=== PATIENT | male | born 1985 ===

== ENCOUNTER 2016-11-13 12:46 | Emergency (ER) | payer MEDICAID, OTHER ==
[2016-11-13 12:46] VITALS: BMI 24.9
[2016-11-13] MEDS ORDERED: Sodium Chloride 0.9% 1,000 ML IV ONE (13:29)
[2016-11-13] MEDS ORDERED: Sodium Chloride 0.9% 1,000 ML ONE (13:39)
[2016-11-13 13:54] LABS: BASO # 0.1 K/uL (0.0-0.2); BASO % 0.8 % (0.0-2.0); EOS % 0.4 % (0.0-4.0); HEMATOCRIT 35.4 % (35.0-51.0); LYMPH # 1.6 K/uL (1.0-4.3); LYMPH % 21.9 % (20.0-40.0); MEAN CELL VOLUME 84.9 fL (80.0-94.0); MEAN CORPUSCULAR HEMOGLOBIN 27.9 pg (27.0-31.0); MEAN CORPUSCULAR HGB CONC 32.8 g/dL (33.0-37.0); MEAN PLATELET VOLUME 8.8 fL (7.2-11.7); MONO # 0.9 K/uL (0.0-0.8); MONO % 12.2 % (0.0-10.0); RED CELL DISTRIBUTION WIDTH 12.9 % (11.5-14.5); WHITE BLOOD COUNT 7.1 K/uL (4.8-10.8)
[2016-11-13 14:00] LABS: CHLORIDE 100 mmol/L (98-107)
[2016-11-13 14:01] LABS: POTASSIUM 3.4 mmol/L (3.6-5.2); SODIUM 136 mmol/L (132-148)
[2016-11-13 14:03] LABS: ALB/GLOB RATIO 1.1 (1.0-2.1); ALKALINE PHOSPHATASE 71 U/L (38-126); AST/SGOT 27 U/L (17-59); BILIRUBIN,TOTAL 0.5 mg/dL (0.2-1.3); CARBON DIOXIDE 25 mmol/L (22-30); GFR AFRICAN-AMERICAN > 60; TOTAL PROTEIN 7.4 g/dL (6.3-8.3)
[2016-11-13 14:04] LABS: ALT/SGPT 26 U/L (21-72); BLOOD UREA NITROGEN 8 mg/dL (9-20); CALCIUM 8.4 mg/dl (8.6-10.4); GLUCOSE,RANDOM 86 mg/dL (75-110)
--- NOTE | 2016-11-13 14:35 | C.PDOC ---
Time Seen by Provider: 11/13/16 13:17 Chief Complaint (Nursing): Cough, Cold, Congestion History Per: Patient Onset/Duration Of Symptoms: Days (1) Current Symptoms Are (Timing): Still Present Associated Symptoms: Cough, Sputum, Nasal Congestion, Vomiting, Diarrhea Severity: Moderate Recent travel outside of the [place]: No Additional History Per: Prior Records Past Medical History Reviewed: Historical Data, Nursing Documentation, Vital Signs Vital Signs: Last Vital Signs Temp 98.5 F 11/13/16 13:01 Pulse 108 H 11/13/16 13:01 Resp 18 11/13/16 13:01 BP 101/66 11/13/16 13:01 Pulse Ox 99 11/13/16 13:01 - Medical History PMH: Bipolar Disorder, Depression, Diabetes, Gastritis Surgical History: No Surg Hx Family History: States: Unknown Family Hx - Social History Hx Tobacco Use: Yes Hx Alcohol Use: No Hx Substance Use: No - Immunization History Hx Tetanus Toxoid Vaccination: No Hx Influenza Vaccination: No Hx Pneumococcal Vaccination: No Review Of Systems Except As Marked, All Systems Reviewed And Found Negative. Constitutional: Negative for: Fever, Weakness ENT: Positive for: Nose Congestion. Negative for: Throat Pain Cardiovascular: Negative for: Chest Pain Respiratory: Positive for: Cough. Negative for: Shortness of Breath, Hemoptysis Gastrointestinal: Positive for: Nausea, Vomiting, Abdominal Pain, Diarrhea Genitourinary: Negative for: Dysuria Musculoskeletal: Negative for: Neck Pain, Back Pain Skin: Negative for: Rash Neurological: Negative for: Weakness, Numbness, Seizures, Altered Mental Status Physical Exam - Physical Exam Appears: Non-toxic, No Acute Distress Skin: Normal Color, Warm, Dry, No Rash Head: Atraumatic, Normacephalic Eye(s): bilateral: PERRL, EOMI Neck: Normal ROM, Supple Cardiovascular: Rhythm Regular Respiratory: Normal Breath Sounds, No Accessory Muscle Use Gastrointestinal/Abdominal: Soft, No Distention Back: No CVA Tenderness Extremity: Normal ROM Neurological/Psych: Oriented x3, Normal Motor, Normal Sensation ED Course And Treatment - Laboratory Results Result Diagrams: 11/13/16 13:49 11/13/16 13:49 Lab Interpretation: No Acute Changes O2 Sat by Pulse Oximetry: 99 Pulse Ox Interpretation: Normal - Radiology CXR: Interpreted by Me, Viewed By Me CXR Interpretation: Yes: No Acute Disease, Heart Size (wnl) Progress Note: Tolerating PO in the ED. Reassessment Condition: Improved Progress - Interventions Interventions:: Observation, Intravenous fluid - Medications Administered Intravenous: Antiemetic, H-2 cecilio - Data Reviewed Data Reviewed: Lab, Diagnostic imaging, Old records - Patient Status Patient status: Mostly improved - Continuity of Care Discussed patient case with:: Patient, ED Nurse - Patient Plan Patient Plan: Discharge, F/U with PCP Disposition Counseled Patient/Family Regarding: Studies Performed, Diagnosis, Need For Followup, Smoking Cessation - Disposition Referrals: [facility] [Outside] Disposition: HOME/ ROUTINE Disposition Time: 14:36 Condition: IMPROVED Additional Instructions: Stop smoking. Drink plenty of fluids. Follow up in the clinic for further evaluation and treatment. Return to the ER if you develop fever, shortness of breath, not tolerating fluids, worsening of symptoms or if you have any other concerns. Instructions: Cold Symptoms (ED) Print Language: BOLIVIAN - Clinical Impression Clinical Impression: Influenza-like illness
[2016-11-13 14:45] VITALS: BP 128/90; PULSE 98; RESP 16; TEMP 98.8; O2SAT 100
--- NOTE | 2016-11-13 14:59 | RAD ---
HISTORY: Cough COMPARISON: 06/11/2012. TECHNIQUE: Chest PA and lateral FINDINGS: LUNGS: No active pulmonary disease. PLEURA: No significant pleural effusion identified. No pneumothorax apparent. CARDIOVASCULAR: Normal. OSSEOUS STRUCTURES: No significant abnormalities. VISUALIZED UPPER ABDOMEN: Normal. OTHER FINDINGS: None. IMPRESSION: No active disease. No significant interval change compared to the prior examination(s).
== END 2016-11-13 14:44 | disposition home or self-care (01) ==
LOC: C.ER 12:46
DX: J11.1 Influenza due to unidentified influenza virus with other respiratory manifestations (principal)
CPT/HCPCS: 71020; 80053; 83690; 85025; 87804; 96361; 96374; 96375; 99285; J2765; J7040

== ENCOUNTER 2016-11-15 22:05 | Emergency (ER) | payer MEDICAID, OTHER ==
[2016-11-15 22:06] VITALS: BMI 24.9
[2016-11-15 22:38] VITALS: BP 100/63; PULSE 126; RESP 20; TEMP 98.1; O2SAT 98
--- NOTE | 2016-11-16 01:21 | C.PDOC ---
History Of Present Illness A 31 y/o male who was seen here 2 days ago for flu like symptoms presents today continuing to feel nausea and aching body pain, that is worse in the knee and legs. Patient was not given any prescriptions to go home with during his last visit. Patient denies fever, chills, abdominal pain, trauma, or any other complaints. Time Seen by Provider: 11/15/16 22:52 Chief Complaint (Nursing): Medical Clearance History Per: Patient History/Exam Limitations: no limitations Onset/Duration Of Symptoms: Days Current Symptoms Are (Timing): Still Present Severity: Mild Reports Recently: Seen In ED Recent travel outside of the [place]: No Additional History Per: Patient Past Medical History Reviewed: Historical Data, Nursing Documentation, Vital Signs Vital Signs: Last Vital Signs Temp 98.1 F 11/15/16 22:35 Pulse 126 H 11/15/16 22:35 Resp 20 11/15/16 22:35 BP 100/63 11/15/16 22:35 Pulse Ox 98 11/16/16 01:28 - Medical History PMH: Bipolar Disorder, Depression, Diabetes, Gastritis Surgical History: No Surg Hx Family History: States: Unknown Family Hx - Social History Hx Tobacco Use: Yes Hx Alcohol Use: No Hx Substance Use: No - Immunization History Hx Tetanus Toxoid Vaccination: No Hx Influenza Vaccination: No Hx Pneumococcal Vaccination: No Review Of Systems Except As Marked, All Systems Reviewed And Found Negative. Constitutional: Negative for: Fever, Chills ENT: Positive for: Nose Congestion Cardiovascular: Negative for: Chest Pain Respiratory: Positive for: Cough, Sputum Gastrointestinal: Positive for: Nausea, Vomiting. Negative for: Abdominal Pain Musculoskeletal: Positive for: Leg Pain (Knee and leg pain) Neurological: Negative for: Headache, Dizziness Physical Exam - Physical Exam Appears: Non-toxic, No Acute Distress Skin: Warm, Dry, No Rash Head: Atraumatic, Normacephalic Eye(s): bilateral: Normal Inspection, EOMI Nose: Normal Oral Mucosa: Moist Neck: Normal ROM, Supple Chest: Symmetrical Cardiovascular: Rhythm Regular Respiratory: Normal Breath Sounds, No Rales, No Rhonchi, No Wheezing Gastrointestinal/Abdominal: Soft, No Tenderness, No Distention, No Guarding Extremity: Bilateral: Atraumatic, No Pedal Edema, Normal Color And Temperature, Normal ROM, Other (no calf tenderness) Pulses: Left Dorsalis Pedis: Normal, Right Dorsalis Pedis: Normal Neurological/Psych: Oriented x3, Normal Speech, Other (No focal deficit) Gait: Steady ED Course And Treatment O2 Sat by Pulse Oximetry: 98 (RA) Pulse Ox Interpretation: Normal Medical Decision Making Medical Decision Making: Impression: 31 y/o c/o flu like sx and leg pain Plans: -Motrin -Zofran Progress: Prior record reviewed, patient had negative flu test and labs unremarkable. Upon reevaluation, patient is resting comfortably and is in no acute distress. He remained afebrile and was able to tolerate PO. He is ambulatory without signs of discomfort. Rx was given. Patient was instructed to follow up with PMD within 1-2 days if symptoms persist. Disposition Counseled Patient/Family Regarding: Diagnosis, Need For Followup, Rx Given - Disposition Disposition: HOME/ ROUTINE Disposition Time: 23:40 Condition: GOOD Additional Instructions: Follow up with the clinic in 2-5 days for further evaluation. Take medications as prescribed. Return to the emergency department at any time if symptoms persist or worsen. You may call [facility] for any assistance . Prescriptions: Ibuprofen [Motrin] 600 mg PO Q8 #30 tab Ondansetron ODT [Zofran ODT] 1 odt PO BID PRN #6 odt PRN Reason: Nausea/Vomiting Instructions: Viral Syndrome (ED) - POA Present On Arrival: None - Clinical Impression Clinical Impression: Viral syndrome, Myalgia - Scribe Statement The provider has reviewed the documentation as recorded by the Emy mcguire All medical record entries made by the Emy were at my direction and personally dictated by me. I have reviewed the chart and agree that the record accurately reflects my personal performance of the history, physical exam, medical decision making, and the department course for this patient. I have also personally directed, reviewed, and agree with the discharge instructions and disposition.
== END 2016-11-15 23:40 | disposition home or self-care (01) ==
LOC: C.ER 22:05
DX: B34.9 Viral infection, unspecified (principal); M79.1 Myalgia

== ENCOUNTER 2016-11-17 06:43 | Emergency (ER) | payer OTHER ==
[2016-11-17 06:43] VITALS: BMI 24.9
[2016-11-17] MEDS ORDERED: Sodium Chloride 0.9% 1,000 ML IV ONE (07:11)
--- NOTE | 2016-11-17 07:16 | C.PDOC ---
History Of Present Illness 31 y/o male with hx depression., schizophrenia and iddm, though hasn't taken insulin in 3 days because he ran out, c/o pleuritic chest pain with cough , green sputum, subjective fever, rhinorrhea. pt sts he vomited yesterday and c/o 3 days of ruq abdominal pain. pt requesting food now in ER. pt reports he was seen at another ED and was 'given a pill' for unknown reason; pt lost discharge papers. Time Seen by Provider: 11/17/16 06:56 Chief Complaint (Nursing): Cough, Cold, Congestion History Per: Patient History/Exam Limitations: no limitations Onset/Duration Of Symptoms: Days (3) Current Symptoms Are (Timing): Still Present Reports Recently: Seen In ED Recent travel outside of the [place]: No Past Medical History Reviewed: Historical Data, Nursing Documentation, Vital Signs Vital Signs: Last Vital Signs Temp 98.1 F 11/17/16 08:58 Pulse 108 H 11/17/16 08:58 Resp 18 11/17/16 08:58 BP 100/73 11/17/16 08:58 Pulse Ox 100 11/17/16 08:58 - Medical History PMH: Bipolar Disorder, Depression, Diabetes, Gastritis Surgical History: No Surg Hx Family History: States: Unknown Family Hx - Social History Hx Tobacco Use: Yes Hx Alcohol Use: No Hx Substance Use: No - Immunization History Hx Tetanus Toxoid Vaccination: No Hx Influenza Vaccination: No Hx Pneumococcal Vaccination: No Review Of Systems Constitutional: Positive for: Fever, Chills ENT: Positive for: Nose Discharge. Negative for: Nose Pain, Throat Pain Cardiovascular: Negative for: Chest Pain Respiratory: Positive for: Cough, Shortness of Breath, Pleuritic Pain, Sputum ( green) Gastrointestinal: Positive for: Vomiting, Abdominal Pain Genitourinary: Negative for: Dysuria, Frequency Neurological: Negative for: Weakness, Numbness Physical Exam - Physical Exam Appears: Non-toxic, No Acute Distress Skin: Warm, Dry Head: Atraumatic, Normacephalic Eye(s): bilateral: Normal Inspection Ear(s): Bilateral: TM Obscured By Wax Nose: Discharge Oral Mucosa: Dry Throat: Normal Neck: Normal ROM Chest: Symmetrical, No Deformity, No Tenderness Cardiovascular: Rhythm Regular (tachycardic 120), No Murmur Respiratory: Decreased Breath Sounds (at bases), No Rales, No Rhonchi, No Wheezing Gastrointestinal/Abdominal: Bowel Sounds, Soft, Tenderness (mild ruq tenderness , neg [place] sign) Back: Normal Inspection Extremity: No Tenderness, No Pedal Edema Neurological/Psych: Oriented x3, Normal Speech, Normal Cognition ED Course And Treatment - Laboratory Results Result Diagrams: 11/17/16 07:34 11/17/16 07:34 O2 Sat by Pulse Oximetry: 97 Pulse Ox Interpretation: Normal - Radiology CXR: Read By Radiologist CXR Interpretation: Yes: No Acute Disease. No: Infiltrates Medical Decision Making Medical Decision Making: pt tachycardic and hyppotensve, appears non-toxic, sepsis screening labs, cxr, vgb and ivf ordered. 947 am pt appears well, walking around in ED in no distress, feeling better. pt treated with ivf and postassium, and ate something in ed. no vomiting, no abdominal hercules on re-exam, will d/c home. Disposition Counseled Patient/Family Regarding: Studies Performed, Diagnosis, Need For Followup - Disposition Referrals: [facility] [Outside] [facility] [Outside] Disposition: HOME/ ROUTINE Disposition Time: 09:49 Condition: IMPROVED Additional Instructions: Follow up in medical clinic in a few days. Stop smoking. Eat food with potassium- banana, oranges. Return to ER for any worsening symptoms. Instructions: Upper Respiratory Infection (ED) Forms: General Discharge Instructions - Clinical Impression Clinical Impression: Upper respiratory infection
[2016-11-17 07:37] LABS: BASO % 0.3 % (0.0-2.0); EOS # 0.2 K/uL (0.0-0.7); EOS % 1.5 % (0.0-4.0); HEMATOCRIT 32.4 % (35.0-51.0); LYMPH # 1.4 K/uL (1.0-4.3); LYMPH % 13.7 % (20.0-40.0); MEAN CORPUSCULAR HEMOGLOBIN 27.9 pg (27.0-31.0); MEAN CORPUSCULAR HGB CONC 32.9 g/dL (33.0-37.0); MEAN PLATELET VOLUME 8.8 fL (7.2-11.7); MONO # 1.1 K/uL (0.0-0.8); MONO % 10.8 % (0.0-10.0); RED CELL DISTRIBUTION WIDTH 12.9 % (11.5-14.5); WHITE BLOOD COUNT 10.1 K/uL (4.8-10.8)
[2016-11-17 07:43] LABS: VENOUS BLOOD GAS BASE EXCESS 1.5 mmol/L (0.0-2.0); VENOUS BLOOD GAS PCO2 49 mmHg (40-60); VENOUS BLOOD PH 7.36 (7.32-7.43)
[2016-11-17] MEDS ORDERED: Potassium Chloride 20 mEq ER Tab PO STA (07:48)
[2016-11-17 07:51] LABS: CHLORIDE 102 mmol/L (98-107); POTASSIUM 3.4 mmol/L (3.6-5.2); SODIUM 138 mmol/L (132-148)
[2016-11-17 07:53] LABS: ALB/GLOB RATIO 1.1 (1.0-2.1); ALKALINE PHOSPHATASE 59 U/L (38-126); AST/SGOT 43 U/L (17-59); BILIRUBIN,TOTAL 0.4 mg/dL (0.2-1.3); BLOOD UREA NITROGEN 4 mg/dL (9-20); CARBON DIOXIDE 26 mmol/L (22-30); GFR AFRICAN-AMERICAN > 60; TOTAL PROTEIN 6.6 g/dL (6.3-8.3)
[2016-11-17 07:54] LABS: ALT/SGPT 25 U/L (21-72); CALCIUM 7.5 mg/dl (8.6-10.4); GLUCOSE,RANDOM 75 mg/dL (75-110)
[2016-11-17] MEDS ORDERED: Potassium Chloride 20 mEq ER Tab PO ONE (07:56)
--- NOTE | 2016-11-17 08:14 | RAD ---
HISTORY: cough green sputum COMPARISON: 11/13/2016 TECHNIQUE: Chest PA and lateral FINDINGS: LUNGS: No active pulmonary disease. PLEURA: No significant pleural effusion identified. No pneumothorax apparent. CARDIOVASCULAR: Normal. OSSEOUS STRUCTURES: No significant abnormalities. VISUALIZED UPPER ABDOMEN: Normal. OTHER FINDINGS: None. IMPRESSION: No active disease.
[2016-11-17 08:19] LABS: URINE BILIRUBIN NEGATIVE (NEGATIVE); URINE BLOOD 2+ (NEGATIVE); URINE COLOR Yellow (YELLOW); URINE GLUCOSE (UA) NORMAL (Normal); URINE KETONE NEGATIVE (NEGATIVE); URINE LEUKOCYTE ESTERASE NEG Leu/uL (Negative); URINE PROTEIN NEGATIVE (NEGATIVE); URINE UROBILINOGEN NORMAL mg/dL (0.2-1.0); WBC URINE 2 /hpf (0-5)
[2016-11-17 08:26] LABS: RBC URINE 6 /hpf (0-3)
[2016-11-17 08:59] VITALS: PULSE 108; RESP 18
[2016-11-17 10:23] VITALS: BP 96/76; TEMP 98.2
[2016-11-18 10:57] VITALS: O2SAT 97
== END 2016-11-17 10:52 | disposition home or self-care (01) ==
LOC: C.ER 06:43
DX: J06.9 Acute upper respiratory infection, unspecified (principal)
CPT/HCPCS: 71020; 80053; 81001; 82803; 85025; 87040; 87086; 96360; 99285; J7040

== ENCOUNTER 2016-11-18 22:45 | Emergency (ER) | payer OTHER ==
[2016-11-18 22:45] VITALS: BMI 24.9
[2016-11-18 23:21] VITALS: BP 106/69; PULSE 98; RESP 16; TEMP 98.4; O2SAT 98
--- NOTE | 2016-11-18 23:43 | C.PDOC ---
History Of Present Illness Patient is a 31 year old male who presents to the ER with a complaint of a painful blister on his left heel. [place] [facility] [place] and [place] tylen[place]. Denies any other physical complaints. Time Seen by Provider: 11/18/16 23:32 Chief Complaint (Nursing): Abnormal Skin Integrity History Per: Patient History/Exam Limitations: no limitations Onset/Duration Of Symptoms: Hrs Current Symptoms Are (Timing): Still Present Location Of Injury: Left: Foot (Heel) Quality Of Symptoms: Painful Recent travel outside of the [place]: No Past Medical History Reviewed: Historical Data, Nursing Documentation, Vital Signs Vital Signs: Last Vital Signs Temp 98.4 F 11/18/16 23:15 Pulse 98 H 11/18/16 23:15 Resp 16 11/18/16 23:15 BP 106/69 11/18/16 23:15 Pulse Ox 98 11/19/16 02:24 - Medical History PMH: Bipolar Disorder, Depression, Diabetes, Gastritis Surgical History: No Surg Hx Family History: States: Unknown Family Hx - Social History Hx Tobacco Use: Yes Hx Alcohol Use: No Hx Substance Use: No - Immunization History Hx Tetanus Toxoid Vaccination: No Hx Influenza Vaccination: No Hx Pneumococcal Vaccination: No Review Of Systems Musculoskeletal: Positive for: Foot Pain (Left heel) Physical Exam - Physical Exam Appears: Well, Non-toxic Skin: Normal Color, Warm, Dry Head: Atraumatic, Normacephalic Oral Mucosa: Moist Extremity: No Swelling, Other (Open blister to left heel, no signs of infection) Neurological/Psych: Oriented x3, Normal Speech, Normal Cognition ED Course And Treatment O2 Sat by Pulse Oximetry: 98 (Room air) Pulse Ox Interpretation: Normal Progress Note: Patient advised to continue using tylen[place] [facility] [place] and to wear flip flops so blister can heal. Disposition - Disposition Referrals: [facility] [Outside] Disposition: HOME/ ROUTINE Disposition Time: 23:42 Condition: STABLE Additional Instructions: Follow up in Clinic within 1-2 days. Return to Ed if feel worse. Prescriptions: Acetaminophen [Tylenol 325mg tab] 2 tab PO Q6 #50 tab Instructions: Blister (ED) - Clinical Impression Clinical Impression: Heel blister - Scribe Statement The provider has reviewed the documentation as recorded by the Scribe Clinton Horton All medical record entries made by the Scribe were at my direction and personally dictated by me. I have reviewed the chart and agree that the record accurately reflects my personal performance of the history, physical exam, medical decision making, and the department course for this patient. I have also personally directed, reviewed, and agree with the discharge instructions and disposition.
== END 2016-11-18 23:51 | disposition home or self-care (01) ==
LOC: C.ER 22:45
DX: S90.822A Blister (nonthermal), left foot, initial encounter (principal); X58.XXXA Exposure to other specified factors, initial encounter

== ENCOUNTER 2016-11-21 03:36 | Emergency (ER) | payer SELFPAY ==
[2016-11-21 03:36] VITALS: BMI 24.9
[2016-11-21 03:56] VITALS: RESP 16
--- NOTE | 2016-11-21 04:52 | C.PDOC ---
History Of Present Illness Pt presents to ER with c/o of wound to left heel with pain which started "from walking too much". Pt was seen 2 days ago here in ED for same. Denies trauma, numbness Time Seen by Provider: 11/21/16 03:52 Chief Complaint (Nursing): Lower Extremity Problem/Injury History Per: Patient History/Exam Limitations: no limitations Current Symptoms Are (Timing): Still Present Past Medical History Vital Signs: Last Vital Signs Temp 98.6 F 11/21/16 03:53 Pulse 120 H 11/21/16 03:53 Resp 16 11/21/16 03:53 BP 100/70 11/21/16 03:53 Pulse Ox 98 11/21/16 05:17 - Medical History PMH: Bipolar Disorder, Depression, Diabetes, Gastritis Family History: States: Unknown Family Hx - Social History Hx Tobacco Use: Yes Hx Alcohol Use: No Hx Substance Use: No - Immunization History Hx Tetanus Toxoid Vaccination: No Hx Influenza Vaccination: No Hx Pneumococcal Vaccination: No Review Of Systems Constitutional: Negative for: Fever Musculoskeletal: Positive for: Foot Pain (left heel) Skin: Positive for: Other (left heel ulcer) Neurological: Negative for: Weakness, Numbness Physical Exam - Physical Exam Appears: Well, Non-toxic Skin: Normal Color Head: Atraumatic Eye(s): bilateral: Normal Inspection Extremity: Normal ROM, No Tenderness, No Calf Tenderness, Capillary Refill (< 2sec), Other (small area of superficial skin sloughing to left heel, no wounds or open lesions, dry calluses to b/l soles, no erythema, no warmth) Extremity: Bilateral: Atraumatic, Normal Color And Temperature Pulses: Left Dorsalis Pedis: Normal, Right Dorsalis Pedis: Normal Neurological/Psych: Oriented x3, Normal Motor, Normal Sensation Gait: Steady ED Course And Treatment O2 Sat by Pulse Oximetry: 98 Disposition Counseled Patient/Family Regarding: Diagnosis, Need For Followup - Disposition Disposition: HOME/ ROUTINE Disposition Time: 05:12 Condition: STABLE Additional Instructions: Soak feet, may apply bacitracin ointment Follow up in clinic Return to ER if worse Prescriptions: Bacitracin Ointment [Bacitracin] 30 gm TOP BID #1 tube Forms: General Discharge Instructions - Clinical Impression Clinical Impression: Callus of heel
[2016-11-21 05:24] VITALS: BP 98/65; PULSE 102; TEMP 97.9
[2016-11-21 05:25] VITALS: O2SAT 98
[2016-11-21] MEDS ORDERED: Bacitracin 500 Units/gm Oint Foilpak UD ONE (05:32)
== END 2016-11-21 05:43 | disposition home or self-care (01) ==
LOC: C.ER 03:36
DX: L84 Corns and callosities (principal)

== ENCOUNTER 2016-12-04 23:10 | Emergency (ER) | payer MEDICAID, OTHER ==
[2016-12-04 23:11] VITALS: BMI 24.9
[2016-12-04 23:53] VITALS: BP 105/67; PULSE 110; TEMP 98.4; O2SAT 99
--- NOTE | 2016-12-05 00:39 | C.PDOC ---
History Of Present Illness 31 y/o male with hx of schizophrenia, ?dm, presents ot ED says he felt nauseous and vomited once today, so he took a xanax and it made him feel worse. pt is requesting food from the nurse. no abdominal pain. pt denies ah, si and hi. pt sts he feels a bit shaky due to dirnking too much coffee, denies cp and sob Time Seen by Provider: 12/05/16 00:13 Chief Complaint (Nursing): Anxiety History Per: Patient History/Exam Limitations: no limitations Onset/Duration Of Symptoms: Days (1) Current Symptoms Are (Timing): Better Past Medical History Reviewed: Historical Data, Nursing Documentation, Vital Signs Vital Signs: Last Vital Signs Temp 98.4 F 12/04/16 23:47 Pulse 110 H 12/04/16 23:47 Resp 16 12/04/16 23:47 BP 105/67 12/04/16 23:47 Pulse Ox 99 12/05/16 00:51 - Medical History PMH: Anxiety, Bipolar Disorder, Depression, Diabetes, Gastritis Other PMH: schizophrenia Surgical History: No Surg Hx Family History: States: Unknown Family Hx - Social History Hx Tobacco Use: Yes Hx Alcohol Use: No Hx Substance Use: No - Immunization History Hx Tetanus Toxoid Vaccination: No Hx Influenza Vaccination: Yes Hx Pneumococcal Vaccination: No Review Of Systems Constitutional: Positive for: Fever (subjective) Cardiovascular: Negative for: Chest Pain, Palpitations Respiratory: Negative for: Cough, Shortness of Breath Gastrointestinal: Positive for: Nausea, Vomiting. Negative for: Diarrhea Genitourinary: Negative for: Dysuria Skin: Negative for: Rash Neurological: Negative for: Weakness, Numbness Physical Exam - Physical Exam Appears: Non-toxic, No Acute Distress Skin: Warm, Dry Head: Atraumatic, Normacephalic Oral Mucosa: Moist Lips: Normal Appearing Neck: Normal ROM Chest: No Deformity, No Tenderness Cardiovascular: Rhythm Regular, No Murmur Respiratory: Normal Breath Sounds, No Rales, No Rhonchi, No Wheezing Gastrointestinal/Abdominal: Bowel Sounds, Soft, No Tenderness Neurological/Psych: Oriented x3, Normal Speech, Normal Cognition ED Course And Treatment O2 Sat by Pulse Oximetry: 99 Medical Decision Making Medical Decision Making: pt reports nausea and vomitingl with hx dm. finger stick in ed 111. pt asks nurse for food upon arrival and tolerates po. pt with normal pe. denies any psychiatric issues. will d/c. Disposition Counseled Patient/Family Regarding: Diagnosis, Need For Followup - Disposition Disposition: HOME/ ROUTINE Disposition Time: 00:50 Condition: STABLE Additional Instructions: Follow up with Dr Connell in next 1-2 days. Do not take other people's medications , like Xanax. Not recommended to drink more than 1-2 cups of coffee per day. Return to ER for any worsening symptoms. Prescriptions: Ondansetron ODT [Zofran ODT] 4 mg PO TID #12 odt Instructions: Acute Nausea and Vomiting (ED) Forms: General Discharge Instructions - Clinical Impression Clinical Impression: Nausea and vomiting
[2016-12-05 01:01] VITALS: RESP 20
== END 2016-12-05 01:00 | disposition home or self-care (01) ==
LOC: C.ER 23:10
DX: R11.2 Nausea with vomiting, unspecified (principal)

== ENCOUNTER 2016-12-13 04:16 | Emergency (ER) | payer MEDICAID ==
[2016-12-13 04:16] VITALS: BMI 24.9
[2016-12-13 04:36] VITALS: BP 110/75; PULSE 103; RESP 16; TEMP 98; O2SAT 98
--- NOTE | 2016-12-13 05:28 | C.PDOC ---
History Of Present Illness Patient is a 31 year old male who presents to the ER with a complaint of nausea and vomiting. Patient reports throwing up in the intermediate earlier today. Denies fever or chills. Time Seen by Provider: 12/13/16 04:39 Chief Complaint (Nursing): GI Problem History Per: Patient History/Exam Limitations: no limitations Onset/Duration Of Symptoms: Hrs Current Symptoms Are (Timing): Still Present Recent travel outside of the [place]: No Past Medical History Reviewed: Historical Data, Nursing Documentation, Vital Signs Vital Signs: Last Vital Signs Temp 98.0 F 12/13/16 04:29 Pulse 103 H 12/13/16 04:29 Resp 16 12/13/16 04:29 BP 110/75 12/13/16 04:29 Pulse Ox 98 12/13/16 05:50 - Medical History PMH: Anxiety, Bipolar Disorder, Depression, Diabetes, Gastritis Surgical History: No Surg Hx Family History: States: Unknown Family Hx - Social History Hx Tobacco Use: Yes Hx Alcohol Use: No Hx Substance Use: No - Immunization History Hx Tetanus Toxoid Vaccination: No Hx Influenza Vaccination: Yes Hx Pneumococcal Vaccination: No Review Of Systems Constitutional: Negative for: Fever, Chills Gastrointestinal: Positive for: Nausea, Vomiting Physical Exam - Physical Exam Appears: Non-toxic, No Acute Distress Skin: Normal Color, Warm, Dry Head: Atraumatic, Normacephalic Oral Mucosa: Moist Chest: Symmetrical, No Tenderness Cardiovascular: Rhythm Regular, No Murmur Respiratory: Normal Breath Sounds, No Rales, No Rhonchi, No Wheezing Gastrointestinal/Abdominal: Soft, No Tenderness Neurological/Psych: Oriented x3, Normal Speech, Normal Cognition ED Course And Treatment O2 Sat by Pulse Oximetry: 98 (Room air) Pulse Ox Interpretation: Normal Progress Note: Zofran administered. Patient is resting comfortably, and is in no acute distress. Patient tolerated PO and was instructed to follow up with clinic in 1-2 days for further evaluation. Disposition Counseled Patient/Family Regarding: Diagnosis, Need For Followup - Disposition Referrals: [facility] [Outside] [facility] [Outside] Disposition: HOME/ ROUTINE Disposition Time: 05:27 Condition: STABLE Forms: General Discharge Instructions - Clinical Impression Clinical Impression: Vomiting - Scribe Statement The provider has reviewed the documentation as recorded by the Scribe Clinton Horton All medical record entries made by the Scribe were at my direction and personally dictated by me. I have reviewed the chart and agree that the record accurately reflects my personal performance of the history, physical exam, medical decision making, and the department course for this patient. I have also personally directed, reviewed, and agree with the discharge instructions and disposition.
== END 2016-12-13 05:33 | disposition home or self-care (01) ==
LOC: C.ER 04:16
DX: R11.10 Vomiting, unspecified (principal); E11.9 Type 2 diabetes mellitus without complications

== ENCOUNTER → 2017-01-25 03:47 | Emergency (ER) | payer MEDICAID, OTHER ==
[~2017-01-25 03:47] MED LIST: Sodium Chloride 0.9% 1,000 ML ONE
[2017-01-25 03:48] VITALS: BMI 24.9
== END | disposition left against medical advice (07) ==
LOC: MERGE 03:47 → C.ER 03:47
DX: Z04.9 Encounter for examination and observation for unspecified reason (principal); Z02.9 Encounter for administrative examinations, unspecified